=== PATIENT | female | born 1970 | race Caucasian/White ===

== ENCOUNTER 2020-01-24 13:42 | Emergency (ER) | payer OTHER ==
[~2020-01-24] VITALS: Ht 154.9 cm; Wt 104.3 kg
[~2020-01-24 13:42] MED LIST: ALEVE220 M1 PO; IBUPROFEN 200200 M1 PO; MULTIVITAMINS1 EAC7 PO; NORCO 5-325 TA1 EACH PO; ZOFRAN ODT4 MG PO
[2020-01-24] MEDS ORDERED: NORCO 5-325 TA1 EAC2 PO (15:08)
[2020-01-24 16:19] VITALS: BP 136/92
== END 2020-01-24 16:30 | disposition home or self-care (01) ==
LOC: ER 13:42
DX: S86.912A Strain of unspecified muscle(s) and tendon(s) at lower leg level, left leg, initial encounter (principal); Z96.642 Presence of left artificial hip joint; Z98.890 Other specified postprocedural states; Z79.899 Other long term (current) drug therapy; X50.1XXA Overexertion from prolonged static or awkward postures, initial encounter; Y93.89 Activity, other specified; Y92.89 Other specified places as the place of occurrence of the external cause; Y99.8 Other external cause status